=== PATIENT | female | born 1950 | race Caucasian/White ===

== ENCOUNTER 2016-08-26 20:59 | Emergency (ER) | payer BC ==
[2016-08-26 21:13] VITALS: BP 129/71
--- NOTE | 2016-08-26 21:27 | UC ---
Ear Complaint HPI - HPI Summary HPI Summary: complaint of feeling a swelling in front of her ear that she noticed tonight pain radites into her right ear and her face took some tylenol with some relief recently had viral pharyngitis and URI which she recovered from approx 1 week ago right ear was painful 2 days ago and feels itchy has had a bad taste in her mouth today denies fever and chills - History of Current Complaint Chief Complaint: UCEar Stated Complaint: LUMP UNDER RIGHT EAR Time Seen by Provider: 08/26/16 21:20 Hx Obtained From: Patient - Allergies/Home Medications Allergies/Adverse Reactions: Allergies Allergy/AdvReac Type Severity Reaction Status Date / Time Erythromycin Allergy Mild Itching Verified 10/27/15 13:53 Amoxicillin Allergy Unknown Verified 10/27/15 13:53 Reaction Details Home Medications: Home Medications Acetaminophen [Tylenol] 325 mg PO Q4HR PRN 08/26/16 [History Confirmed 08/26/16] Fluticasone-Salmeterol 100-50* [Advair Diskus 100-50*] 2 puff INH DAILY [History Confirmed 08/26/16] PMH/Surg Hx/FS Hx/Imm Hx Previously Healthy: Yes Endocrine History Of: Reports: Thyroid Disease Denies: Diabetes Cardiovascular History Of: Denies: Cardiac Disorders, Pacemaker/ICD Respiratory History Of: Reports: Asthma - Surgical History Surgical History: Yes Surgery Procedure, Year, and Place: BREAST TUMORS REMOVED . TUBAL EARLY - Family History Known Family History: Negative: Cardiac Disease, Hypertension, Diabetes - Social History Occupation: Retired Lives: With Family Alcohol Use: Rare Substance Use Type: None Smoking Status (MU): Former Smoker Type: Cigarettes Review of Systems Constitutional: Negative Skin: Negative Eyes: Negative ENT: Ear Ache Respiratory: Negative Cardiovascular: Negative Gastrointestinal: Negative Genitourinary: Negative Motor: Negative Neurovascular: Negative Musculoskeletal: Negative Neurological: Negative Psychological: Negative All Other Systems Reviewed And Are Negative: Yes Physical Exam Triage Information Reviewed: Yes Appearance: Well-Appearing, Well-Nourished Vital Signs: Initial Vital Signs Temp 98.4 F 08/26/16 21:07 Pulse 77 08/26/16 21:07 Resp 16 08/26/16 21:07 BP 129/71 08/26/16 21:07 Pulse Ox 97 08/26/16 21:07 Vital Signs Reviewed: Yes Eyes: Positive: Conjunctiva Clear ENT: Positive: Pharynx normal, TM bulging, Other: - Right parotid gland slight edema - slightly tender- not warm to touch. Negative: Nasal congestion, TM red Neck: Positive: No Lymphadenopathy Respiratory: Positive: Lungs clear, Normal breath sounds, No respiratory distress Cardiovascular: Positive: RRR, No Murmur, Pulses Normal Abdomen Description: Positive: Nontender, Soft, CVA Tenderness (R) Musculoskeletal: Positive: No Edema Neurological: Positive: Alert Psychological Exam: Normal Skin Exam: Normal Ear Complaint Course/Dx - Course Course Of Treatment: exam completed. mild parotid edema- not warm to touch- pt afebrile -hx of c-difficile- will start conservative measures with followup with PCP if no improvement - Differential Dx/Diagnosis Differential Diagnosis/HQI/PQRI: Otitis Media, Other - parotiditis, lymphadenopathy Provider Diagnoses: parotid gland swelling right side. eustachion tube dysfunction Discharge - Discharge Plan Condition: Stable Disposition: HOME Prescriptions: Fluticasone NASAL SPRAY 50MCG* [Flonase NASAL SPRAY 50MCG*] 2 spray BOTH NARES DAILY #1 btl Patient Education Materials: Parotid Duct Obstruction (ED), Eustachian Tube Dysfunction (GEN) Referrals: Vernon Garibay MD [Primary Care Provider] - Additional Instructions: Your parotid gland is swollen Put heat on the swollen area. Wet a clean wash cloth with warm water and put it on the area. When the wash cloth cools, reheat it with warm water and put it back on. Repeat these steps for 10 to 15 minutes every few hours. Drink lots of fluids. Gently massage the swollen area. Suck on sour or lemon-flavored hard candy. Take an [id number] medicine to treat your pain Start flonase as directed to reduce the fluid behind your tympanic membranes If the pain increases ,you develop a fever or your symptoms please followup with your primary care provider
== END 2016-08-26 21:47 | disposition home or self-care (01) ==
LOC: UCCORT 20:59
DX: R59.0 Localized enlarged lymph nodes (principal); H69.91 Unspecified Eustachian tube disorder, right ear; Z88.1 Allergy status to other antibiotic agents; Z88.0 Allergy status to penicillin; Z87.891 Personal history of nicotine dependence
CPT/HCPCS: 99211; G0463

== ENCOUNTER 2017-03-22 16:26 | Emergency (ER) | payer MEDICARE, BC ==
[2017-03-22 16:37] VITALS: BP 125/76
--- NOTE | 2017-03-22 17:53 | RAD ---
INDICATION: Right rib injury. COMPARISON: Comparison is made with a prior chest x-ray study from November 25, 2012. TECHNIQUE: 4 views of the right ribs and a PA view of the chest was obtained. FINDINGS: No fracture or significant focal osseous abnormality is seen. The heart is within normal limits in size. The lungs are clear. There is no evidence for pneumothorax or pleural effusion. IMPRESSION: NO EVIDENCE FOR FRACTURE.
--- NOTE | 2017-03-22 17:54 | UC ---
Truncal Trauma HPI - HPI Summary HPI Summary: Patient was lying on the floor working on a project, turned her upper body and heard a snap, then sharp pain in the right side of her ribs, hurts to move and breath - History Of Current Complaint Chief Complaint: UCUpperExtremity Stated Complaint: RIB INJURY Time Seen by Provider: 03/22/17 16:32 Hx Obtained From: Patient ?: No Onset/Duration: Sudden Onset, Lasting Days Onset Of Pain: Immediate Severity Initially: Moderate Severity Currently: Moderate Mechanism Of Injury: Twisted Aggravating Factor(s): Movement, Deep Breathing, Cough Alleviating factor(s): Rest Associated Signs And Symptoms: Positive: Negative - Allergies/Home Medications Allergies/Adverse Reactions: Allergies Allergy/AdvReac Type Severity Reaction Status Date / Time Erythromycin Allergy Mild Itching Verified 03/22/17 16:37 Amoxicillin Allergy Unknown Verified 03/22/17 16:37 Reaction Details PMH/Surg Hx/FS Hx/Imm Hx Previously Healthy: Yes - Surgical History Surgical History: Yes Surgery Procedure, Year, and Place: BREAST TUMORS REMOVED . TUBAL EARLY - Family History Known Family History: Positive: Unknown Negative: Cardiac Disease, Hypertension, Diabetes - Social History Alcohol Use: Rare Substance Use Type: None Smoking Status (MU): Former Smoker Type: Cigarettes - Immunization History Most Recent Influenza Vaccination: no Review of Systems Constitutional: Negative Skin: Negative Eyes: Negative ENT: Negative Respiratory: Negative Cardiovascular: Negative Gastrointestinal: Negative Genitourinary: Negative Motor: Negative Neurovascular: Negative Musculoskeletal: Decreased ROM - of trunk, Myalgia Neurological: Negative Psychological: Negative All Other Systems Reviewed And Are Negative: Yes Physical Exam Triage Information Reviewed: Yes Appearance: Well-Appearing, Well-Nourished, Pain Distress Vital Signs: Initial Vital Signs Temp 99.1 F 03/22/17 16:32 Pulse 82 03/22/17 16:32 Resp 16 03/22/17 16:32 BP 125/76 03/22/17 16:32 Pulse Ox 97 03/22/17 16:32 Vital Signs Reviewed: Yes Eye Exam: Normal Eyes: Positive: Conjunctiva Clear ENT: Positive: Hearing grossly normal, Pharynx normal, TMs normal Dental Exam: Normal Neck exam: Normal Neck: Positive: Supple, Nontender, No Lymphadenopathy Respiratory Exam: Normal Respiratory: Positive: Chest non-tender, Lungs clear, Normal breath sounds Cardiovascular Exam: Normal Cardiovascular: Positive: RRR, No Murmur, Pulses Normal Abdominal Exam: Normal Abdomen Description: Positive: Nontender, No Organomegaly, Soft Bowel Sounds: Positive: Present Musculoskeletal: Positive: No Edema, Strength Limited @ - in right arm due to pain, ROM Limited @ - in twisint of trunk Neurological Exam: Normal Psychological Exam: Normal Truncal Trauma Course/Dx - Course Course Of Treatment: hx obtained, exam performed ,meds reviewed, xray of ribs obtained and was negative, educated on treatment of muscel strain - Differential Dx/Diagnosis Provider Diagnoses: muscle strain of right trunk Discharge - Discharge Plan Condition: Stable Disposition: HOME Patient Education Materials: Muscle Strain (ED) Referrals: Vernon Garibay MD [Primary Care Provider] - Carter Redd MD [Medical Doctor] - Additional Instructions: 1. take ibuprofen 400-600 mg every 4-6 hours or naproxen 1-2 pills every 12 hours. 2. Heat and stretch the are a few times a day. 3. If pain perists without improvment over the next week, follow up with orthopedic
== END 2017-03-22 18:04 | disposition home or self-care (01) ==
LOC: UCCORT 16:26
DX: S39.001A Unspecified injury of muscle, fascia and tendon of abdomen, initial encounter (principal)
CPT/HCPCS: 99211; G0463

== ENCOUNTER 2019-08-29 06:31 | Day surgery (SDC) | payer MEDICARE, BC ==
[~2019-08-29 06:31] MED LIST: Buffered Lidocaine 1% SYRIN* 1 ML/SYRINGE INTRADERM ONE; Lactated Ringers 1000 ML Bag* 1,000 ML IV SCH
[2019-08-29] MEDS ORDERED: ceFAZolin 2 GM PREMIX in ORs 2 GM/50 ML BAG ONE (07:01)
[2019-08-29] MEDS ORDERED: Buffered Lidocaine 1% SYRIN* 1 ML/SYRINGE INTRADERM ONE (07:01)
[2019-08-29] MEDS ORDERED: Propofol* 10 MG/ML 20 ML BTL ONE (08:41)
[2019-08-29] MEDS ORDERED: Lidocaine 2% PF * 5 ML VIAL ONE (08:41)
[2019-08-29] MEDS ORDERED: Propofol* 500 MG/50 ML BTL ONE (08:43)
[2019-08-29] MEDS ORDERED: KETAMINE HCL* 50 MG/ML 10 ML VIAL ONE (08:43)
[2019-08-29] MEDS ORDERED: Bupivacaine 0.5%* 50 ML MDV VIAL ONE (08:44)
[2019-08-29] MEDS ORDERED: Midazolam* 1 MG/ML 2 ML VIAL (2 MG) ONE (09:44)
[2019-08-29] MEDS ORDERED: Ibuprofen TAB* 600 MG ONE (11:15)
[2019-08-29] MEDS ORDERED: Acetaminophen TAB* 325 MG PO PRN (11:37)
[2019-08-29] MEDS ORDERED: Ondansetron INJ* 2 MG/ML VIAL IV PRN (11:37)
[2019-08-29] MEDS ORDERED: Naloxone* 0.4 MG/ML 1 ML VIAL IV PRN (11:37)
[2019-08-29] MEDS ORDERED: fentaNYL* 50 MCG/ML 2 ML VIAL (100 MCG VIAL) IV PRN (11:37)
[2019-08-29] MEDS ORDERED: oxyCODONE TAB* 5 MG TAB PO PRN (11:37)
[2019-08-29 13:11] VITALS: BP 119/74
--- NOTE | 2019-08-30 03:45 | OP ---
DATE OF OPERATION: 08/29/19 - [facility] DATE OF : 54 ATTENDING SURGEON: Mick Porter MD INCIDENT COMMANDER: Archie Cameron PA-C PRE-OP DIAGNOSES: Shallow osteochondral defect, right talus, and ankle instability. POST-OP DIAGNOSES: Shallow osteochondral defect, right talus, and ankle instability. OPERATIVE PROCEDURE: Subchondral drilling of the right osteochondral defect, talus, and ankle ligament repair, modified Brostrom. DESCRIPTION OF PROCEDURE: The patient was taken to the operating room where a longitudinal incision was made over the distal fibula. The capsule was divided directly off the anterior aspect of the distal fibula and a Acuna retractor over the dome of the talus to expose the osteochondral defect. It was a shallow defect. No significant cystic bone defect noted. About 8 mm in diameter , we drilled this with a 0.045 C-wire with multiple subchondral drilling to allow subchondral hemorrhage and fibrous cap. We then created back to front drill holes through the distal fibula using 0.062 C-wires with #1 Vicryl sutures and Edwin-Eben repair. The capsule was brought up firmly to the anterior and distal portion of the fibula. We then used some Monocryl for the subcu and evin for the skin, and a compression dressing and plaster splint applied. [id number]/[facility] #: [id number] [facility]
== END 2019-08-29 13:15 | disposition home or self-care (01) ==
LOC: OR 06:31
PROVIDERS: ATTEND Orthopaedic Surgery
DX: M25.371 Other instability, right ankle (principal); M93.871 Other specified osteochondropathies, right ankle and foot; Z87.891 Personal history of nicotine dependence; E55.9 Vitamin D deficiency, unspecified; E78.5 Hyperlipidemia, unspecified; K58.9 Irritable bowel syndrome, unspecified; J45.909 Unspecified asthma, uncomplicated; E03.9 Hypothyroidism, unspecified
CPT/HCPCS: A9270-GY; C1776; J0690; J2250; J2704; J3490